=== PATIENT | female | born 1965 | race Caucasian/White ===

== ENCOUNTER 2022-07-27 18:29 | Emergency (ER) | payer MEDICAID, SELFPAY ==
[2022-07-27 18:30] VITALS: BP 101/70; PULSE 59; RESP 16; TEMP 36.9; O2SAT 97; BMI 18.4
--- NOTE | 2022-07-27 19:05 | EX.ED.DYSGE1 ---
HPI History of Present Illness Chief Complaint: General Illness Narrative Narrative: 57-year-old female here for headache, body aches for 3 days. Patient denies sudden onset or thunderclap headache, denies maximal intensity within 1 minute, vomiting, neck pain or stiffness, changes in vision, fever, history malignancy, syncope, seizures. Patient denies any recent trauma. Denies any chest pain. Denies any shortness of breath. Notes fatigue, excessive sleeping and dry mouth. Denies any unexplained weight loss, night sweats. Denies any sore throat, ear pain, urinary symptoms PFSH PFSH Medical History unable to obtain Allergy/AdvReac Type Severity Reaction Status Date / Time Penicillins [PCN] Allergy Hives Verified 07/27/22 18:30 Sulfa (Sulfonamide Allergy Hives Verified 07/27/22 18:30 Antibiotics) Social History Smoking Status: Unknown if ever smoked ROS ROS ED ROS Narrative Constitutional: Denies fever HEENT: Denies sore throat Neck: Denies neck pain Cardiovascular: Denies chest pain, syncope Respiratory: Denies shortness of breath GI: Denies nausea vomiting or abdominal pain : Denies changes in urinary habits Musculoskeletal: Denies muscle or joint pain Neurologic: Denies numbness weakness or loss of sensation Skin denies rash EXAM Physical Exam Narrative Exam Narrative: Nursing triage notes reviewed, Vital signs reviewed Constitutional: please see mdm HENT: Dry oral mucosa Eyes: Pupils equal round and reactive to light, Extraocular muscles intact Neck: No stridor, no JVD, full neck ROM Lungs: Clear to auscultation, No wheezing or rales. No increased work of breathing, no conversational dyspnea, no accessory muscle use, no nasal flaring. No respiratory distress noted Heart: Regular rate and rhythm, No murmurs, No rubs and No gallops, 2+ distal pulses (radial, femoral, posterior tibial) in all extremities Abdomen: Soft, there is no tenderness, rigidity, rebound or guarding, no obvious peritoneal signs, no palpable pulsatile abdominal masses, no auscultated abdominal bruit : No CVAT Extremities: No edema Neuro: No focal neurological deficits, cranial nerves II through XII intact, 5/5 strength in all extremities. Intact sensation to light touch in all extremities, 2+ reflexes bilateral patella dens. Normal gait. No ataxia. Skin: No rash or lesions noted Const Vital Signs: 07/27/22 18:30 Temperature 98.4 F Temperature Source Temporal Pulse Rate 59 L Respiratory Rate 16 Blood Pressure 101/70 Blood Pressure Mean 80 Pulse Ox 97 Oxygen Delivery Method Room Air MDM MDM MDM Narrative Medical decision making narrative: Chief Complaint: Headache, body aches External records reviewed: No recent ED visit hospitalizations I considered the following differential diagnosis: Flu, viral URI, pharyngitis. I initially obtained with to obtain a chest x-ray, labs including COVID, flu, CBC, troponin, EKG. Prior to labs, images and reassessment patient left the emergency department for treatment complete. Factors affecting care: None Social determinants of health: none History obtained from others: Patient's Shared decision making: I will have a discussion with the patient and or visitors regarding risk/benefits of further testing or admission. They will be made aware of of the risk/benefits inherent in this decision they will be given the opportunity to voice understanding. Consults: none Discharge Plan Triage Chief Complaint: General Illness ED Provider: Edmond Doyle Dx/Rx/DC Orders Clinical Impression: Eloped from emergency department, Fatigue, Cough Primary Care Provider: Care Physician,No Primary Referrals: Care Physician,No Primary [Primary Care Provider] - Disposition Disposition: Home, Self Care
--- NOTE | 2022-07-27 19:56 | ED.RN ---
PT ELOPED PRIOR TO NURSE ASSESSMENT, DR SALEH MADE AWARE
== END 2022-07-27 20:05 | disposition left against medical advice (07) ==
PROVIDERS: Emergency Provider Emergency Medicine; Visit Provider Emergency Medicine
DX: R53.83 Other fatigue (principal); R05.9 Cough, unspecified
CPT/HCPCS: 99282